=== PATIENT | male | born 1995 | race Two or more races ===

== ENCOUNTER 2019-01-28 13:46 | Emergency (ER) | payer MEDICAID, OTHER ==
[~2019-01-28] VITALS: Ht 172.7 cm; Wt 97.1 kg
[2019-01-28] MEDS ORDERED: PROPRANOLOL HCL 20 MG TAB PO ONE (16:15)
[2019-01-28] MEDS ORDERED: buPROPion HCL 100 MG TAB PO ONE (16:15)
[2019-01-28 16:45] VITALS: BP 149/63
== END 2019-01-28 16:59 | disposition home or self-care (01) ==
LOC: ER 13:46
DX: F41.9 Anxiety disorder, unspecified (principal); R00.0 Tachycardia, unspecified; Z76.0 Encounter for issue of repeat prescription
CPT/HCPCS: 93005